=== PATIENT | female | born 1995 | race Caucasian/White ===

== ENCOUNTER 2018-07-29 14:11 | Observation (INO) ==
[2018-07-29] MEDS ORDERED: OXYTOCIN/LR 20 UNIT/1,000 ML BAG IV ONE ×2 (15:01→15:03)
[2018-07-29] MEDS ORDERED: MEPERIDINE 25 MG/1 ML VIAL IV PRN (15:02)
[2018-07-29] MEDS ORDERED: PROMETHAZINE 25 MG/1 ML VIAL IM PRN (15:02)
[2018-07-29 15:39] VITALS: BP 108/60
== END 2018-07-29 16:32 | disposition home or self-care (01) ==
LOC: N.OB
PROVIDERS: ADMIT Obstetrics & Gynecology; ATTEND Obstetrics & Gynecology